=== PATIENT | female | born 2000 | race Caucasian/White ===

== ENCOUNTER 2021-08-12 21:00 | Inpatient (IN) | payer BC, SELFPAY ==
--- NOTE | ~2021-08-12 | CT_ITS ---
Javier EXAMINATION: CTA chest PE protocol DATE: 08/12/2021 23:22 INDICATION: dyspnea with elevated D-dimer,RT UPPER BACK PAIN,X1DAY TECHNIQUE: Computed tomography angiography (CTA) of the chest was performed with 100 mL Omnipaque-350 intravenous contrast timed to evaluate the pulmonary arteries. Coronal maximum intensity projection 3D-reconstructions were created by the technologist. The dose-length product (DLP) was 348.51 mGy-cm. Automated exposure control and iterative reconstruction technique were employed. COMPARISON: X-ray chest, same date. FINDINGS: Study quality: Adequate. Pulmonary arteries: Nonocclusive right lower lobe segmental embolus, with occlusive subsegmental embo li more distally. Thoracic aorta: Normal. Lung parenchyma and airways: Somewhat wedge-shaped right lower lobe pleural-based opacity, with surro unding groundglass opacities. Thoracic inlet, axillae and chest wall: Unremarkable. Mediastinum: Normal. Heart and pericardium: Normal. RV/LV ratio less than 1. No septal bowing. Coronary artery calcifications: Absent. Pleura: Very small volume right pleural fluid collection. Upper abdomen: Subcentimeter cyst or hemangioma in the liver. Bones: No acute osseous finding. IMPRESSION: Acute right lower lobe segmental pulmonary embolus. Right lower lobe pulmonary infarct. Trace right p leural effusion. No evidence of right heart strain. Preliminary report was of a limited study requiring repeat imaging but did suggest right heart strain and pulmonary infarct. In my opinion this study is interpretable and an acute pulmonary embolus is e vident. This discrepancy was discussed with Dr. Juan Ding telephonically at 3:05 PM on 08/13/2021 who informed me the patient was diagnosed with pulmonary embolus and appropriate treatment begun. Reviewed, dictated and finalized at location K. IMPRESSION: Acute right lower lobe segmental pulmonary embolus. Right lower lobe pulmonary infarct. Trace right pleural effusion. No evidence of right heart strain. Preliminary report was of a limited study requiring repeat imaging but did sugg est right heart strain and pulmonary infarct. In my opinion this study is inter pretable and an acute pulmonary embolus is evident. This discrepancy was discus sed with Dr. Juan Ding telephonically at 3:05 PM on 08/13/2021 who informed me the patient was diagnosed with pulmonary embolus and appropriate treatment b kristal.
--- NOTE | ~2021-08-12 | XR_ITS ---
EXAMINATION: XR chest 2V Exam Date/Time: 08/12/2021 21:35 CDT HISTORY: upper back pain-RT SIDE,X1DAY,DYPNEA Comparison: 10/12/2020. RESULT: Lines, tubes, and devices: None. Lungs and pleura: Clear. Cardiomediastinal silhouette: Stable cardiomediastinal silhouette. Other: No acute osseous or upper abdominal finding. IMPRESSION: No acute cardiopulmonary process. Reviewed, dictated and finalized at location K.
[2021-08-12 21:10] VITALS: BP 140/86; PULSE 123; RESP 20; TEMP 38.1; O2SAT 99
--- NOTE | 2021-08-12 21:28 | ECG_ITS ---
Measurements Intervals Soldier Rate: 114 P: 53 GA: 121 QRS: 81 QRSD: 73 T: -9 QT: 293 QTc: 404 Interpretive Statements SINUS TACHYCARDIA LEFT ATRIAL ENLARGEMENT [-0.15mV P-WAVE IN V1/V2] NONSPECIFIC ST & T-WAVE ABNORMALITY BORDERLINE ECG NO PREVIOUS ECG AVAILABLE FOR COMPARISON Electronically Signed On 08-14-2021 14:25:39 CDT by Mane Rivera M.D.
[2021-08-12] MEDS: SODIUM CHLORIDE 0.9% IV 1,000 ML 999 ML IV CONT (21:50)
[2021-08-12] MEDS: MORPHINE SULFATE (*CRX) 2 MG/ML INJ IV PUSH (21:55)
[2021-08-12 22:03] LABS: Add Urine Microscopic? NO; Appearance Urine Clear (Clear); Bilirubin Urine Negative (Negative); Blood Urine Negative (Negative); Color Urine Light Yellow (Yellow); Glucose Urine UA Negative (Negative); Ketones Urine Negative (Negative); Leukocyte Esterase Ur Negative (Negative); Nitrate Urine Negative (Negative); Protein Urine Negative (Negative); Urobilinogen Urine 0.2 mg/dL (0.2-1.0); pH Urine 6.5 (5.0-8.0)
[2021-08-12 22:03] LABS: Basophils Absolute Auto 0.03 K/mm3 (0.00-0.10); Basophils Percent Auto 0.2 % (0.0-1.0); Eosinophils Absolute Auto 0.05 K/mm3 (0.02-0.50); Eosinophils Percent Auto 0.4 % (1.0-6.0); Hematocrit 36.7 % (35.0-49.0); Hemoglobin 12.3 g/dL (12.0-15.0); Immature Granulocyte Absolute 0.04 K/mm3 (0.00-0.00); Immature Granulocyte Percent A 0.3 % (0.0-0.0); Lymphocytes Absolute Auto 2.37 K/mm3 (1.10-4.50); Lymphocytes Percent Auto 18.5 % (18.0-42.0); Mean Corpuscular HGB Conc 33.5 g/dL (32.0-36.0); Mean Corpuscular Hemoglobin 29.8 pg (27.0-31.0); Mean Corpuscular Volume 88.9 fL (78.0-102.0); Mean Platelet Volume 10.5 fl (9.2-11.8); Monocytes Absolute Auto 1.24 K/mm3 (0.10-0.90); Monocytes Percent Auto 9.7 % (2.0-11.0); Neutrophils Absolute Auto 9.1 K/mm3 (1.7-7.2); Neutrophils Percent Auto 70.9 % (50.0-70.0); Platelet Count Result 409 K/mm3 (150-420); Red Blood Count 4.13 M/mm3 (4.20-5.40); Red Cell Distribution Width 12.6 % (11.6-14.4); White Blood Count 12.8 K/mm3 (4.8-10.8)
[2021-08-12 22:10] LABS: Lactic Acid Reflex 1.1 mmol/L (0.4-2.0)
[2021-08-12 22:13] LABS: Pregnancy On Board Control Positive; Urine Pregnancy Test Negative
[2021-08-12 22:13] LABS: Alanine Aminotransferase 23 U/L (14-59); Albumin Level 3.6 g/dL (3.4-5.0); Alkaline Phosphatase 104 U/L (46-116); Anion Gap 7 mmol/L (8-16); Aspartate Amino Transferase 15 U/L (15-37); Bilirubin,Total 0.6 mg/dL (0.00-1.00); Blood Urea Nitrogen 7 mg/dL (7-18); Calcium 8.5 mg/dL (8.5-10.1); Carbon Dioxide 26 mmol/L (21-32); Chloride 104 mmol/L (98-108); Estimated CRCL calculation 86 ml/min; Estimated Glomerular Filt Rate > 60; Glucose 121 mg/dL (70-99); Lipase 57 U/L (73-393); Osmolality Calculated 283 mOsm/kg (285-295); Sodium 137 mmol/L (136-145); Total Protein 7.8 g/dL (6.4-8.2); Troponin I 5.6 ng/L (0.00-60.4)
[2021-08-12 22:18] LABS: D Dimer 4.46 mg/L (0.19-0.50)
[2021-08-12 22:23] VITALS: BP 120/76; PULSE 103; RESP 17; O2SAT 100
--- NOTE | 2021-08-12 22:33 | ED.GENADULT ---
HPI - General Adult General Chief complaint: Unspecified Stated complaint: rib/shoulder pain Related Data Home Medications Medication Instructions Recorded Confirmed norgestimate 0.18 mg/0.215 mg/0.25 1 tablet PO DAILY 10/12/20 08/12/21 mg-ethinyl estradiol 25 mcg tablet Allergies Allergy/AdvReac Type Severity Reaction Status Date / Time No Known Allergies Allergy Verified 08/12/21 21:22 PENDING SALE TO [facility] Social History Social History (Updated 10/12/20 @ 10:55 by Molly Alonso MA) Smoking status: Never smoker Course Vital Signs Vital signs: Vital Signs Temperature 38.1 C H 08/12/21 21:10 Pulse Rate 123 H 08/12/21 21:10 Respiratory Rate 20 08/12/21 21:10 Blood Pressure 140/86 08/12/21 21:10 Pulse Oximetry 99 08/12/21 21:10 Oxygen Delivery Room Air 08/12/21 21:10 Temperature 38.1 C H 08/12/21 21:10 Pulse Rate 103 H 08/12/21 22:23 Respiratory Rate 17 08/12/21 22:23 Blood Pressure 120/76 08/12/21 22:23 Pulse Oximetry 100 08/12/21 22:23 Oxygen Delivery Room Air 08/12/21 22:23 Medical Decision Making Vital Signs Vital Signs: Vital Signs Temperature 38.1 C H 08/12/21 21:10 Pulse Rate 123 H 08/12/21 21:10 Respiratory Rate 20 08/12/21 21:10 Blood Pressure 140/86 08/12/21 21:10 Pulse Oximetry 99 08/12/21 21:10 Oxygen Delivery Room Air 08/12/21 21:10 Temperature 38.1 C H 08/12/21 21:10 Pulse Rate 103 H 08/12/21 22:23 Respiratory Rate 17 08/12/21 22:23 Blood Pressure 120/76 08/12/21 22:23 Pulse Oximetry 100 08/12/21 22:23 Oxygen Delivery Room Air 08/12/21 22:23 Lab Data Result diagrams: 08/12/21 21:43 08/12/21 21:43 Labs: Lab Results 08/12/21 08/12/21 08/12/21 Range/Units 21:43 21:43 21:43 WBC (4.8-10.8) K/mm3 RBC (4.20-5.40) M/mm3 Hgb (12.0-15.0) g/dL Hct (35.0-49.0) % MCV (78.0-102.0) fL MCH (27.0-31.0) pg MCHC (32.0-36.0) g/dL RDW (11.6-14.4) % Plt Count (150-420) K/mm3 MPV (9.2-11.8) fl Immature Gran % (Auto) (0.0-0.0) % Neut % (Auto) (50.0-70.0) % Lymph % (Auto) (18.0-42.0) % Gordon % (Auto) (2.0-11.0) % Eos % (Auto) (1.0-6.0) % Baso % (Auto) (0.0-1.0) % Lymph # (Auto) (1.10-4.50) K/mm3 Gordon # (Auto) (0.10-0.90) K/mm3 Eos # (Auto) (0.02-0.50) K/mm3 Baso # (Auto) (0.00-0.10) K/mm3 Abs Immat Gran (auto) (0.00-0.00) K/mm3 Absolute Neuts (auto) (1.7-7.2) K/mm3 Absolute Nucleated RBC (0.00-0.00) K/mm3 Nucleated RBC % (0-0.0) % D-Dimer 4.46 H* (0.19-0.50) mg/L Sodium 137 (136-145) mmol/L Potassium 4.0 (3.5-5.1) mmol/L Chloride 104 (98-108) mmol/L Carbon Dioxide 26 (21-32) mmol/L Anion Gap 7 L (8-16) mmol/L BUN 7 (7-18) mg/dL Creatinine 0.82 (0.55-1.02) mg/dL Estim Creat Clear Calc 86 ml/min Estimated GFR > 60 (59 - ) Glucose 121 H (70-99) mg/dL Calculated Osmolality 283 L (285-295) mOsm/kg Lactic Acid 1.1 (0.4-2.0) mmol/L Calcium 8.5 (8.5-10.1) mg/dL Total Bilirubin 0.6 (0.00-1.00) mg/dL AST 15 (15-37) U/L ALT 23 (14-59) U/L Alkaline Phosphatase 104 (46-116) U/L Troponin I 5.6 (0.00-60.4) ng/L C-Reactive Protein (0.0-0.9) mg/dL Total Protein 7.8 (6.4-8.2) g/dL Albumin 3.6 (3.4-5.0) g/dL Lipase 57 L (73-393) U/L Urine Color (Yellow) Urine Appearance (Clear) Urine pH (5.0-8.0) Ur Specific [place] (1.010-1.020) Urine Protein (Negative) Urine Glucose (UA) (Negative) Urine Ketones (Negative) Ur Blood (Man) (Negative) Urine Nitrate (Negative) Urine Bilirubin (Negative) Urine Urobilinogen (0.2-1.0) mg/dL Ur Leukocyte Esterase (Negative) Urine Test 08/12/21 08/12/21 08/12/21 Range/Units 21:43 21:43 21:44 WBC 12.8 H (4.8-10.8) K/mm3 RBC 4.13 L (4.20-5.4
--- NOTE | 2021-08-12 22:34 | ED.GENADULT ---
HPI - General Adult General Chief complaint: Unspecified Stated complaint: rib/shoulder pain Source: patient and family Limitations: no limitations History of Present Illness HPI narrative: this is a 21-year-old female that presents with some pain in her right upper back area with deep inspiration has been going last of days with currently Has fever fever with no chills, no recent viral syndrome, patient does vape and is currently on control denies any shortness of breath unless she takes a deep inspiration with currently no nausea or vomiting no abdominal pain no dysuria. Onset (ago): day(s) Radiation: back Severity: moderate Severity scale (1-10): 7 Quality: aching Pain Consistency: other ( with deep inspiration) Related Data Home Medications Medication Instructions Recorded Confirmed norgestimate 0.18 mg/0.215 mg/0.25 1 tablet PO DAILY 10/12/20 08/12/21 mg-ethinyl estradiol 25 mcg tablet Allergies Allergy/AdvReac Type Severity Reaction Status Date / Time No Known Allergies Allergy Verified 08/12/21 21:22 Review of Systems Review of Systems: All systems reviewed & are unremarkable except as noted in HPI and below PMFSH Past Medical History Medical History Patient denies medical problems Social History Social History Smoking status: Never smoker Exam Const: General: healthy appearing, no acute distress and alert Limitations: no limitations HENMT: Head: normal to inspection Ears: external ears normal Face and sinus: normal facial exam Mouth: Yes Normal oral and palatal mucosa present Eyes: Conjunctivae: conjunctivae normal Pupils: Equal, round and reactive pupils present EOM: EOMs intact bilaterally Neck: Neck: normal visual inspection, no lymphadenopathy and no meningeal signs Chest: Chest palpation & inspection: normal inspection of the chest Resp: Effort & Inspection: normal respiratory effort Other: pain right upper back area with deep inspiration Cardio: Rate: regular rate GI: GI Palp: Yes Soft to palpation Auscultation: normal bowel sounds : General: Yes bladder normal to palpation Urinary Catheter: Urinary Catheter: patent and draining Back/Spine/Pelvis: Back: no CVA tenderness Skin: General skin exam: normal color Neuro: General: patient oriented x3, moves all extremities, no meningeal signs and no focal motor deficits Gait exam (Neuro): Normal gait present Extrem: General: normal to inspection, no clubbing, cyanosis or edema and no pedal edema Psych: Mental Status: mental status grossly normal Affect: Anxious affect present Course Course Emergency Course: patient received IV morphine for pain control after reassessment patient has had improvement ever pain, patient has received IV fluids and lab work was reviewed with patient and family. Patient did an elevated D-dimer and CTA to rule out PE has been performed and reviewed. CT scan performed shows a right ventricular strain and echocardiogram is recommended, the patient has pulmonary embolus vital signs are stable, blood pressure is 116/58 with heart rate of 94 respiratory rate of 17 advised family that we will be admitting patient will start Eliquis. Vital Signs Vital signs: Vital Signs Temperature 38.1 C H 08/12/21 21:10 Pulse Rate 123 H 08/12/21 21:10 Respiratory Rate 20 08/12/21 21:10 Blood Pressure 140/86 08/12/21 21:10 Pulse Oximetry 99 08/12/21 21:10 Oxygen Delivery Room Air 08/12/21 21:10 Temperature 38.1 C H 08/12/21 21:10 Pulse Rate 103 H 08/12/21 22:23 Respiratory Rate 17 08/12/21 22:23 Blood Pressure 120/76 08/12/21 22:23 Pulse Oximetry 100 08/12/21 22:23 Oxygen Delivery Room Air 08/12/21 22:23 Medical Decision Making Vital Signs Vital Signs: Vital Signs Temperature 38.1 C H 08/12/21 21:10 Pulse Rate 123 H 08/12/21 21:1
[2021-08-12 22:51] VITALS: BP 119/72; PULSE 100; RESP 20; O2SAT 100
[2021-08-12 23:01] VITALS: BP 127/70; PULSE 103; RESP 16; O2SAT 100
[2021-08-12 23:34] VITALS: BP 122/81; PULSE 99; RESP 18; O2SAT 100
[2021-08-12 23:52] VITALS: BP 116/58; PULSE 94; RESP 17; TEMP 36.9; O2SAT 100
[2021-08-13] MEDS: APIXABAN 2.5 MG TABLET 10 MG PO (00:33)
[2021-08-13 00:41] VITALS: BP 117/75; PULSE 103; RESP 20; O2SAT 100
[2021-08-13 01:15] VITALS: BP 121/69; PULSE 98; RESP 20; TEMP 37.3; O2SAT 99
[2021-08-13 01:30] VITALS: PULSE 88
--- NOTE | 2021-08-13 01:35 | ADMGEN ---
This patient, Nicole Oleary, was admitted to 2nd Floor Room 226-2. Patient oriented to hospital policies and general routines including ID bracelet, bed and alarms, visiting hours, pain management, procedures, bathroom and other care routines, personal items, smoking policy, room service/diet, and visiting hours. Information on how to activate the Rapid Response Team has been discussed. Patient are encouraged to report perceived risks to care and to ask questions if they do not understand what they are told or what they should do.
[2021-08-13 01:38] VITALS: BMI 26.9
[2021-08-13] MEDS: SODIUM CHLORIDE 0.9% IV 1,000 ML 100 ML IV CONT (01:50)
[2021-08-13] MEDS: MORPHINE SULFATE (*CRX) 2 MG/ML INJ IV PUSH ×2 (02:11→07:01)
[2021-08-13 04:00] VITALS: PULSE 80
[2021-08-13 05:22] LABS: Basophils Absolute Auto 0.04 K/mm3 (0.00-0.10); Basophils Percent Auto 0.4 % (0.0-1.0); Eosinophils Absolute Auto 0.11 K/mm3 (0.02-0.50); Hematocrit 33.4 % (35.0-49.0); Immature Granulocyte Absolute 0.04 K/mm3 (0.00-0.00); Immature Granulocyte Percent A 0.4 % (0.0-0.0); Lymphocytes Absolute Auto 3.28 K/mm3 (1.10-4.50); Mean Corpuscular HGB Conc 32.9 g/dL (32.0-36.0); Mean Corpuscular Hemoglobin 29.5 pg (27.0-31.0); Mean Corpuscular Volume 89.5 fL (78.0-102.0); Mean Platelet Volume 10.1 fl (9.2-11.8); Monocytes Absolute Auto 1.48 K/mm3 (0.10-0.90); Monocytes Percent Auto 13.5 % (2.0-11.0); Neutrophils Percent Auto 54.7 % (50.0-70.0); Platelet Count Result 356 K/mm3 (150-420); Red Blood Count 3.73 M/mm3 (4.20-5.40); Red Cell Distribution Width 12.6 % (11.6-14.4); White Blood Count 10.9 K/mm3 (4.8-10.8)
[2021-08-13 05:33] LABS: Alanine Aminotransferase 19 U/L (14-59); Albumin Level 3.1 g/dL (3.4-5.0); Alkaline Phosphatase 90 U/L (46-116); Anion Gap 5 mmol/L (8-16); Aspartate Amino Transferase 19 U/L (15-37); Bilirubin,Total 0.6 mg/dL (0.00-1.00); Blood Urea Nitrogen 6 mg/dL (7-18); Calcium 8.2 mg/dL (8.5-10.1); Carbon Dioxide 27 mmol/L (21-32); Chloride 108 mmol/L (98-108); Estimated CRCL calculation 93 ml/min; Estimated Glomerular Filt Rate > 60; Glucose 88 mg/dL (70-99); Osmolality Calculated 286 mOsm/kg (285-295); Potassium 3.7 mmol/L (3.5-5.1); Sodium 140 mmol/L (136-145); Total Protein 6.8 g/dL (6.4-8.2)
[2021-08-13 08:00] VITALS: BP 120/68; PULSE 105; PULSE 97; RESP 16; TEMP 37.1; O2SAT 98
--- NOTE | 2021-08-13 08:22 | PM.SD2 ---
Same Day Admit/Disch: HPI History of Present Illness Chief complaint: rib/shoulder pain Narrative: Nicole Oleary is a 21 year old female that presented to emergency department with complaints of right side back and shoulder pain. Patient denies any past medical history. Patient is on control and vapes which increases her chances of being able PE. According to patient a couple days ago she started to experiencing right side back and shoulder pain, patient notes that when she bent over her pain increased. She is denying any shortness of breath vital signs 80, 20, 99% on room air, 121/69, 99.1, WBCs 10.9, hemoglobin 11.0, hematocrit 33.4 platelets 356 D-dimer 4.46, 9, sodium 137, potassium 4.0, BUN 7, creatinine 0.82, glucose 121 patient, lactic acid 1.1 CTA indicates PE and recommends a follow-up with echo echo ordered with results going to Dr. Lunsford. Patient educated on blood thinners. The patient denies SOB, CP, palpitation, extremity numbness, lightheadedness, dizziness, constipation, diarrhea, chills, or fever. Patient notes that she does have some discomfort to her right side of her back and shoulder but her condition has improved. She agrees that she is ready for discharge. Patient is informed that if she experiences any shortness of breath, increasing pain she will need to call EMS to go to the nearest emergency department. [facility] Past Medical History Medical History Patient denies medical problems Family History Family History (Updated 08/13/21 @ 01:38 by Karla Us RN) Grandparent FH: heart attack Social History Social History Smoking status: Never smoker Smokeless tobacco user: other Additional smoking assessment comments: vapes Drinks per week: 1 Substance use: never Substance use type: does not use Spiritual care concerns: No Same Day Admit/Disch: Med Pre-admit Medications Home Medications Medication Instructions Recorded Confirmed Type norgestimate 0.18 mg/0.215 mg/0.25 1 tablet PO DAILY 10/12/20 08/12/21 History mg-ethinyl estradiol 25 mcg tablet albuterol sulfate 90 mcg/actuation 1 puff inhalation QID PRN 08/13/21 Rx aerosol inhaler (ProAir HFA) shortness of breath or wheezing #8.5 grams hydrocodone 10 mg-acetaminophen 1 tablet PO Q6H PRN pain #15 tabs 08/13/21 Rx 325 mg tablet rivaroxaban 15 mg (42)-20 mg (9) 1 ea PO BID #51 ea 08/13/21 Rx tablets in a starter pack (Xarelto DVT-PE Treatment 30-Day Starter) Exam Narrative: GENERAL: This is a well-nourished, well-developed patient, in no apparent distress. HEAD: normocephalic, atraumatic. EYES: PERRL. Sclera clear/white. Vision is grossly intact. EARS: External ears normal, auditory canals clear and without drainage, TMs normal without perforation. Hearing grossly intact. NOSE: External nose normal with no obvious nasal discharge, nares without redness, no rhinorrhea. THROAT: Mucous membranes moist, posterior pharynx clear. NECK: Neck supple, non-tender without lymphadenopathy, masses or thyromegaly. CARDIOVASCULAR: Regular rate and rhythm without murmurs, gallops, or rubs. RESPIRATORY: Clear to auscultation. Breath sounds equal bilaterally. No wheezes, rales, or rhonchi. GASTROINTESTINAL: Abdomen soft, non-tender, nondistended. Bowel sounds are active. No hepato-splenomegaly, or palpable masses. No guarding. SKIN: warm, intact with no suspicious lesions or rash, good texture and turgor. NEURO: awake, alert, and oriented to person, place and time. There were no obvious focal neurologic abnormalities. Steady gait EXTREMITIES: Normal range of motion. No edema. No calf tenderness. Negative Homans sign bilaterally. BACK: Nontender without deformity or crepitance. No flank tenderness. DS: Data Data Completed and Pending Labs on day of discharge: Labs from last 24 hours 08/13/21 08/13/21
--- NOTE | 2021-08-13 10:45 | PC.NURSE ---
Pt discharged to home in stable condition. RN instructed the pt regarding Xerelto. Dosage , time, and side effects. Otto for pain and an albuterol inhaler for SOB. RN reinforced teaching about coming back to ER if sudden Chest pain or SOB occurs. Pt verbalizes understanding.
--- OUTSIDE RECORDS SUMMARY | 2021-08-14 07:49 | XMS_ITS ---
:2000 Author Care Team Providers Name Role Phone MEHDI SALINAS MD Primary Care Provider [phone] Allergies Code Code System Name Reaction Severity Status Onset NKDA ? Medications Name Status Start Date Stop Date ? ? Nlb-Nm-Hercsp 0.18 mg/0.215 mg/0.25 mg-25 mcg tablet Active ? Not available TAKE 1 TABLET BY MOUTH EVERY DAY Problems None recorded. Procedures None recorded. Results Lab Results None recorded. Past Encounters 04/27/2021 Gynecologic Examination; Secondary Dysme norrhea Isabel Vicente [facility]: [address], [address], [place] [address], Ph. 02/23/2020 Contraception Care Management; Gynecolog ic Examination Isabel Vicente [facility]: [address], [address], [place] [address], Ph. Social History Tobacco Smoking Status Never Smoker Vaccine List None recorded. Plan of Care Reminders Provider Appointments None recorded. ? ? Lab None recorded. ? ? Referral None recorded. ? ? Procedures None recorded. ? ? Surgeries None recorded. ? ? Imaging None recorded. ? ? Vitals 04/27/2021 01:45PM [facility] Height Weight BMI Blood Pressure 5 ft 2 in 154 lbs 28.2 kg/m2 122/74 mm[Hg] 02/23/2020 01:00PM NEW PATIENT PROBLEM Height Weight BMI Blood Pressure 5 ft 1 in 145 lbs 27.4 kg/m2 122/77 mm[Hg]
--- NOTE | 2021-08-16 13:22 | PC.NURSE ---
Pt states she received and understood her discharge instructions. Pt has no other comments.
== END 2021-08-13 10:15 | disposition home or self-care (01) | DRG 176 ==
LOC: CHSED 08-13 00:30 → CHS2ND 08-13 01:18
PROVIDERS: Admitting Provider Internal Medicine; Emergency Provider Emergency Medicine; PCP Internal Medicine; Visit Provider Internal Medicine
DX: I26.99 Other pulmonary embolism without acute cor pulmonale (principal); F17.290 Nicotine dependence, other tobacco product, uncomplicated
CPT/HCPCS: 36415; 71046; 71275; 80053; 81003; 81025; 83605; 83690; 84484; 85025; 85380; 86140; 93005; 96361; 96374; 99285; A9270; J2270; J7030; Q9967

== ENCOUNTER 2021-08-15 11:26 | Outpatient (CLI) | payer BC, SELFPAY ==
--- NOTE | ~2021-08-15 | US_ITS ---
EXAMINATION: US venous doppler [facility] DATE: 08/15/2021 12:19 INDICATION: Lower limb swelling. Pulmonary embolism. TECHNIQUE: Grayscale ultrasound images without and with compression and Doppler ultrasound images of the bilateral lower extremity veins were obtained. COMPARISON: None. FINDINGS: The visualized portions of right common femoral vein, profunda (deep) femoral vein, femoral vein, pop liteal vein, posterior tibial veins, peroneal veins, gastrocnemius vein and greater saphenous vein ou tflow are patent. There is hypoechoic noncompressible thrombus filling 1 of the paired left peroneal veins at the calf. The second left peroneal vein is patent and compressible. The visualized portions of left common fem oral vein, profunda femoral vein, femoral vein, popliteal vein, posterior tibial veins, gastrocnemius vein and greater saphenous vein outflow are patent. IMPRESSION: 1. Left-sided [id number] deep venous thrombosis in one of the left peroneal veins of the calf. 2. No deep venous thrombosis in the right lower limb. Reviewed, dictated and finalized at location B. IMPRESSION: 1. Left-sided [id number] deep venous thrombosis in one of the left peronea l veins of the calf. 2. No deep venous thrombosis in the right lower limb.
== END 2021-08-15 11:27 | disposition home or self-care (01) ==
LOC: CHSIMG 11:32
PROVIDERS: PCP Internal Medicine; Visit Provider Internal Medicine
DX: I82.402 Acute embolism and thrombosis of unspecified deep veins of left lower extremity (principal); I26.99 Other pulmonary embolism without acute cor pulmonale
CPT/HCPCS: 93970

== ENCOUNTER 2021-08-21 09:48 | Outpatient (CLI) | payer BC, SELFPAY ==
--- NOTE | 2021-08-21 09:55 | ECHO_ITS ---
Patient Info Name: Nicole Oleary Age: 21 years : 2000 Gender: Female Ht: 62 in Wt: 150 lbs BSA: 1.74 m2 HR: 92 bpm BP: 122 / 67 mmHg Heart Rhythm: Sinus Rhythm Technical Quality: Fair Exam Date: 08/21/2021 10:07 AM Exam Location: [facility] Patient Status: Outpatient Admit Date: 08/21/2021 Staff Ordering Physician: Bethany Marshall Healthcare Administrator: Cindy Roche RDCS Attending Provider: Bethany Marshall Referring Physician: Rolando ELIZABETH; Exam Type: CA echo doppler color flow Study Info Indications - PULMONARY EMBOLISM WITHOUT COR PULMONALE Complete two-dimensional, color flow and Doppler transthoracic echocardiogram is performed. Summary 1. Complete two-dimensional, color flow and Doppler transthoracic echocardiogram is performed. 2. Left ventricular chamber dimension is normal. 3. Left ventricular systolic function is normal, estimated at 65-70%. 4. The left ventricular diastolic function is normal. 5. E/e' 5 is not elevated. 6. No pulmonary hypertension, estimated pulmonary arterial systolic pressure is 26 mmHg. 7. There is trace pulmonic regurgitation. Left Ventricle E/e' 5 is not elevated. Left ventricular chamber dimension is normal. Left ventricular systolic function is normal, estimated at 65-70%. The left ventricular diastolic function is normal. Right Ventricle Right ventricular systolic function is normal and with normal TAPSE 1.7 cm. Right ventricular chamber dimension is normal. Left Atria Left atrial chamber dimension is normal. Right Atria Right atrial chamber dimension is normal. Aortic Valve The aortic valve is trileaflet. There is no aortic valve stenosis. There is no aortic valve regurgitation. Pulmonic Valve There is trace pulmonic regurgitation. Mitral Valve There is no mitral valve stenosis. There is no mitral valve regurgitation. Tricuspid Valve There is no tricuspid valve regurgitation. No pulmonary hypertension, estimated pulmonary arterial systolic pressure is 26 mmHg. Pericardium/Pleural There is no pericardial effusion. Inferior Vena Cava Normal inferior vena cava with >50% collapse upon inspiration consistent with normal right atrial pressure, 5 mmHg. Aorta The aortic root size at the sinus of Valsalva is normal. Left Ventricular Outflow Tract Name Value Normal LVOT 2D LVOT Diameter 2.0 cm LVOT Doppler LVOT Peak Velocity 115 cm/s LVOT Peak Gradient 5 mmHg LVOT Mean Gradient 3 mmHg LVOT VTI 18 cm LVOT VTI/AV VTI Ratio 0.8 LVOT Stroke Volume 58 ml Pulmonic Valve Name Value Normal RVOT Doppler RVOT Peak Gradient 2 mmHg PV Doppler
== END 2021-08-21 09:49 | disposition home or self-care (01) ==
LOC: CHSIMG 09:49
PROVIDERS: PCP Internal Medicine; Visit Provider Nurse Practitioner
DX: I26.99 Other pulmonary embolism without acute cor pulmonale (principal)
CPT/HCPCS: 93306

== ENCOUNTER 2021-09-27 18:22 | Outpatient (CLI) | payer BC, SELFPAY ==
--- NOTE | ~2021-09-27 | XR_ITS ---
EXAMINATION: XR chest 2V Exam Date/Time: 09/27/2021 18:33 CDT HISTORY: F/U PE x 1 mo. on/off tightness @ RT posterior lung area Comparison: 08/12/2021. RESULT: Lines, tubes, and devices: None. Lungs and pleura: Clear. Cardiomediastinal silhouette: Stable. Other: No acute osseous or upper abdominal finding. IMPRESSION: No acute cardiopulmonary process. Reviewed, dictated and finalized at location K.
== END 2021-09-27 18:23 | disposition home or self-care (01) ==
LOC: CHSIMG 18:24
PROVIDERS: PCP Internal Medicine; Visit Provider Internal Medicine
DX: I26.99 Other pulmonary embolism without acute cor pulmonale (principal)
CPT/HCPCS: 71046

== ENCOUNTER 2021-11-17 12:29 | Outpatient (CLI) | payer BC, SELFPAY ==
--- NOTE | ~2021-11-17 | CT_ITS ---
EXAMINATION: CTA chest PE protocol DATE: 11/17/2021 13:43 INDICATION: Pulmonary embolism follow-up TECHNIQUE: Computed tomography angiography (CTA) of the chest was performed with 100 mL Omnipaque-350 intravenous contrast timed to evaluate the pulmonary arteries. Coronal maximum intensity projection 3D-reconstructions were created by the technologist. Automated exposure control and iterative reconst ruction technique were employed. Exam dose: 270.35 mGy-cm total exam DLP. COMPARISON: 08/12/2021 CT pulmonary scan FINDINGS: There is diagnostic contrast enhancement of the pulmonary arteries. There are are scattered areas of intraluminal thrombus within the posterolateral basilar left lower l obe and posterior basilar right lower lobe; on the right on the left/. There is mild residual discoid atelectasis or scarring in the posterior basilar right lower lobe. The lungs are otherwise clear of infiltrate or consolidation. No thoracic aortic aneurysm or dissection. No hilar or mediastinal mass lesion or lymphadenopathy. Normal heart size. No evidence of right heart strain. No pericardial or pleural effusion. IMPRESSION: Occasional scattered bilateral lower lobe pulmonary emboli, relatively stable on the rig ht The left since 08/12/2021 Minimal posterior basilar right lower lobe discoid atelectasis or scarring Reviewed, dictated and finalized at Location A. Reviewed, dictated and finalized at location B. IMPRESSION: Occasional scattered bilateral lower lobe pulmonary emboli, relati vely stable on the right The left since 08/12/2021 Minimal posterior basilar right lower lobe discoid atelectasis or scarring
== END 2021-11-17 12:30 | disposition home or self-care (01) ==
LOC: CHSIMG 12:31
PROVIDERS: PCP Internal Medicine; Visit Provider Internal Medicine
DX: I26.99 Other pulmonary embolism without acute cor pulmonale (principal)
CPT/HCPCS: 71275; Q9967

== ENCOUNTER 2021-11-20 07:32 | Outpatient (CLI) | payer BC, SELFPAY ==
--- NOTE | ~2021-11-20 | US_ITS ---
EXAMINATION: US venous doppler [facility] DATE: 11/20/2021 09:09 INDICATION: Chronic deep venous thrombosis TECHNIQUE: Arndt scale images without and with compression and Doppler images of the bilateral lower e xtremity veins were obtained. COMPARISON: 07/26/2021 FINDINGS: The right common femoral vein, profunda femoral vein, femoral vein, popliteal vein, peroneal trunk, p osterior tibial veins, and greater saphenous vein are patent. There is a small amount of nonocclusive thrombus in the left peroneal vein. The left common femoral v ein, profunda femoral vein, femoral vein, popliteal vein, posterior tibial veins, and greater sapheno us vein are patent. IMPRESSION: 1. Small amount of nonocclusive thrombus in the left peroneal vein, otherwise patent bilateral lower extremity veins. Reviewed, dictated and finalized at location A. IMPRESSION: 1. Small amount of nonocclusive thrombus in the left peroneal vein, otherwise p atent bilateral lower extremity veins.
== END 2021-11-20 07:33 | disposition home or self-care (01) ==
LOC: CHSIMG 07:33
PROVIDERS: PCP Internal Medicine; Visit Provider Internal Medicine
DX: I26.99 Other pulmonary embolism without acute cor pulmonale (principal); I82.409 Acute embolism and thrombosis of unspecified deep veins of unspecified lower extremity
CPT/HCPCS: 93970

== ENCOUNTER 2021-11-29 07:53 | Outpatient (CLI) | payer BC, SELFPAY ==
[2021-11-29 08:11] LABS: Basophils Absolute Auto 0.03 K/mm3 (0.00-0.10); Basophils Percent Auto 0.4 % (0.0-1.0); Eosinophils Absolute Auto 0.33 K/mm3 (0.02-0.50); Eosinophils Percent Auto 4.2 % (1.0-6.0); Hemoglobin 13.5 g/dL (12.0-15.0); Immature Granulocyte Absolute 0.02 K/mm3 (0.00-0.00); Immature Granulocyte Percent A 0.3 % (0.0-0.0); Lymphocytes Absolute Auto 2.78 K/mm3 (1.10-4.50); Lymphocytes Percent Auto 35.1 % (18.0-42.0); Mean Corpuscular HGB Conc 33.8 g/dL (32.0-36.0); Mean Corpuscular Hemoglobin 30.3 pg (27.0-31.0); Mean Corpuscular Volume 89.7 fL (78.0-102.0); Monocytes Absolute Auto 0.61 K/mm3 (0.10-0.90); Monocytes Percent Auto 7.7 % (2.0-11.0); Neutrophils Absolute Auto 4.1 K/mm3 (1.7-7.2); Neutrophils Percent Auto 52.3 % (50.0-70.0); Platelet Count Result 327 K/mm3 (150-420); Red Blood Count 4.46 M/mm3 (4.20-5.40); Red Cell Distribution Width 13.2 % (11.6-14.4); White Blood Count 7.9 K/mm3 (4.8-10.8)
[2021-11-29 10:16] LABS: Ferritin 16 ng/mL (8-252); Iron 68 ug/dL (50-170); Vitamin B12 1334 pg/mL (193-986)
== END 2021-11-29 07:54 | disposition home or self-care (01) ==
LOC: CHSLAB 07:56
PROVIDERS: PCP Internal Medicine; Visit Provider Internal Medicine
DX: D64.0 Hereditary sideroblastic anemia (principal); E53.8 Deficiency of other specified B group vitamins
CPT/HCPCS: 36415; 82607; 82728; 83540; 85025

== ENCOUNTER 2022-07-31 09:43 | Outpatient (CLI) | payer BC, SELFPAY ==
[2022-07-31 09:58] LABS: Basophils Absolute Auto 0.02 K/mm3 (0.00-0.10); Basophils Percent Auto 0.3 % (0.0-1.0); Eosinophils Absolute Auto 0.12 K/mm3 (0.02-0.50); Eosinophils Percent Auto 1.9 % (1.0-6.0); Hematocrit 41.5 % (35.0-49.0); Hemoglobin 14.4 g/dL (12.0-15.0); Immature Granulocyte Absolute 0.01 K/mm3 (0.00-0.00); Immature Granulocyte Percent A 0.2 % (0.0-0.0); Lymphocytes Absolute Auto 3.16 K/mm3 (1.10-4.50); Lymphocytes Percent Auto 49.1 % (18.0-42.0); Mean Corpuscular HGB Conc 34.7 g/dL (32.0-36.0); Mean Corpuscular Hemoglobin 31.9 pg (27.0-31.0); Mean Platelet Volume 9.9 fl (9.2-11.8); Monocytes Absolute Auto 0.53 K/mm3 (0.10-0.90); Monocytes Percent Auto 8.2 % (2.0-11.0); Neutrophils Absolute Auto 2.6 K/mm3 (1.7-7.2); Neutrophils Percent Auto 40.3 % (50.0-70.0); Platelet Count Result 347 K/mm3 (150-420); Red Blood Count 4.51 M/mm3 (4.20-5.40); Red Cell Distribution Width 12.1 % (11.6-14.4); White Blood Count 6.4 K/mm3 (4.8-10.8)
[2022-07-31 11:01] LABS: Ferritin 33 ng/mL (8-252); Iron 189 ug/dL (50-170); Vitamin B12 1270 pg/mL (193-986)
== END 2022-07-31 09:44 | disposition home or self-care (01) ==
LOC: CHSLAB 09:48
PROVIDERS: PCP Internal Medicine; Visit Provider Internal Medicine
DX: D50.9 Iron deficiency anemia, unspecified (principal)
CPT/HCPCS: 36415; 82607; 82728; 83540; 85025

== ENCOUNTER → 2022-08-31 08:47 | Outpatient (CLI) | payer BC, SELFPAY ==
--- NOTE | ~2022-08-31 | US_ITS ---
EXAMINATION: US venous doppler [facility] DATE: 08/31/2022 09:37 INDICATION: Recent left lower limb deep venous thrombosis TECHNIQUE: Grayscale ultrasound images without and with compression and Doppler ultrasound images of the bilateral lower extremity veins were obtained. COMPARISON: 11/20/2021 FINDINGS: The visualized portions of right common femoral vein, profunda (deep) femoral vein, femoral vein, pop liteal vein, posterior tibial veins, peroneal veins, gastrocnemius vein and greater saphenous vein ou tflow are patent. Interval resolution of the previously noted noncompressible thrombus in the left peroneal vein. The v isualized portions of left common femoral vein, profunda femoral vein, femoral vein, popliteal vein, posterior tibial veins, peroneal veins, gastrocnemius vein and greater saphenous vein outflow are all now patent. IMPRESSION: 1. No deep venous thrombosis in either lower limb. Reviewed, dictated and finalized at location B.
--- NOTE | ~2022-08-31 | CT_ITS ---
Clinical Indication: Pulmonary embolus CT Scan of the Chest with Contrast: Technique: Contiguous sections were acquired throughout the chest after intravenous administration of 100 cc of Omnipaque 350. Dose reduction technique was used on this scan by utilizing automated expos ure control and iterative reconstruction technique. The dose-length product (DLP) was 299.77 mGy-cm. COMPARISON: 11/17/2021 Findings: There is no evidence of any significant mediastinal, hilar or axillary lymphadenopathy. There is no f illing defect in the pulmonary arterial tree to suggest pulmonary embolus. There is no aortic aneurys m. There is no evidence of pleural or pericardial effusion. The lungs are clear. No pulmonary nodules or infiltrates are noted. Images through the upper abdomen reveal no abnormalities. Impression: No evidence of pulmonary embolus, aortic dissection, or aortic aneurysm. Clear lungs. Reviewed, dictated and finalized at location . Impression: No evidence of pulmonary embolus, aortic dissection, or aortic aneurysm. Clear lungs.
== END ==
PROVIDERS: PCP Internal Medicine; Visit Provider Internal Medicine
DX: I82.409 Acute embolism and thrombosis of unspecified deep veins of unspecified lower extremity (principal); I26.99 Other pulmonary embolism without acute cor pulmonale
CPT/HCPCS: 71275; 93970; Q9967